=== PATIENT | female | born 1940 | race Caucasian/White ===

== ENCOUNTER 2025-08-17 16:26 | Outpatient (OUT) | payer MEDICARE, SELFPAY ==
--- NOTE | 2025-08-17 | XR_ITS ---
[facility] [place] [id number] Patient Name: BRITT WHYTE MRN: [id number] date: 1940 Sex: F Assigned Patient Location: [facility] Current Patient Location: [facility] Accession/Order Number: [id number] Exam Date: 08/17/2025 16:30 Report Date: 08/17/2025 17:30 At the request of: DANTE HARPER Procedure: XR hand LT min 3V 3 views left hand plain film COMPARISON: None HISTORY: Fell 3 days ago. Left hand pain. Pain involving the first digit/metacarpal region ACUTE FINDINGS: Concern for avulsion fracture arising from the proximal phalanx ulnar collateral ligament at the first metacarpophalangeal joint. DEGENERATIVE CHANGE: Extensive first carpometacarpal degeneration. STT arthritis. Chondrocalcinosis. SOFT TISSUE FINDINGS: Unremarkable JOINT EFFUSION: None POSTOP CHANGES: None BONY MINERALIZATION: Adequate XR/XR hand LT min 3V IMPRESSION: Concern for avulsion fracture involving the ulnar collateral ligament of the first metacarpal phalangeal joint from the proximal phalanx insertion. Impression dictated by: Sukhi Enrique M.D. 08/17/2025 5:30 PM Dictation Location: [place] [address] Electronically authenticated by: [id number] Y Date: 08/17/2025 17:30
== END 2025-08-17 16:27 | disposition home or self-care (01) ==
LOC: RAD 16:26
PROVIDERS: PCP Family Medicine; Visit Provider Family Medicine
DX: M79.642 Pain in left hand (principal)
CPT/HCPCS: 73130